=== PATIENT | female | born 1970 | race Caucasian/White ===

== ENCOUNTER 2017-10-12 14:18 | Emergency (ER) | payer OTHER ==
[~2017-10-12] VITALS: Ht 165.1 cm; Wt 69.5 kg
[~2017-10-12 14:18] MED LIST: CEFTIN250 MG PO; CIPRO 500MG TA500 MG PO; CLARITIN; FLAGYL500 MG PO; LORTAB 7.5/5001 TAB PO; MUCINEX1200 MG PO; NO HOME MEDICATIONS; NORCO 325 MG-51 TAB PO; ZOFRAN 4MG T4 MG/TAB PO; ZYRTEC-D 5 MG-11 TER PO
[2017-10-12 14:20] VITALS: BP 146/78; PULSE 108; TEMP 99.2
== END 2017-10-12 15:27 | disposition home or self-care (01) ==
LOC: COL.ER 14:18
DX: S93.402A Sprain of unspecified ligament of left ankle, initial encounter (principal); S83.92XA Sprain of unspecified site of left knee, initial encounter; F17.210 Nicotine dependence, cigarettes, uncomplicated; W01.0XXA Fall on same level from slipping, tripping and stumbling without subsequent striking against object, initial encounter; Y92.89 Other specified places as the place of occurrence of the external cause
CPT/HCPCS: L1846

== ENCOUNTER → 2017-12-21 | Outpatient (CLI) | payer BC | LOC: MC.RAD 07:30 | DX: Z12.31 Encounter for screening mammogram for malignant neoplasm of breast (principal) ==

== ENCOUNTER → 2017-12-23 | Outpatient (CLI) | payer OTHER | LOC: COL.RAD 07:47 | DX: M25.562 Pain in left knee (principal) | CPT/HCPCS: J3301; Q9967 ==

== ENCOUNTER 2019-05-07 00:35 | Emergency (ER) | payer BC ==
[~2019-05-07] VITALS: Ht 165.1 cm; Wt 72.7 kg
[2019-05-07 00:44] VITALS: TEMP 97.9
[2019-05-07 01:23] LABS: BASO # 0.1 (0.0-0.2); BASO % 0.7 % (0.0-2.0); EOS # 0.3 (0.0-0.7); EOS % 2.3 % (0-4.0); GRAN # 6.3 (1.4-6.5); GRAN % 55.2 % (42.2-75.2); HEMATOCRIT 41.5 % (37.0-47.0); HEMOGLOBIN 13.9 g/dl (12.5-16.0); LYMPH % 34.5 % (20.0-51.0); MEAN CELL VOLUME 91 fl (80.0-100.0); MEAN CORPUSCULAR HEMOGLOBIN 31 pg (27.0-31.0); MEAN CORPUSCULAR HGB CONC 34 g/dl (33.0-37.0); MEAN PLATELET VOLUME 10.4 fl (7.4-10.4); MONO # 0.8 (0.1-0.6); PLATELET COUNT 269 K/mm3 (130-400); RED BLOOD COUNT 4.54 M/mm3 (4.10-5.30); REDCELL DISTRIBUTION WIDTH-CV 12.3 % (11.5-14.5)
[2019-05-07 01:30] LABS: ALANINE AMINOTRANSFERASE 9 U/L (9-52); ALBUMIN 4.3 gm/dL (3.5-5.0); ALKALINE PHOSPHATASE 82 U/L (50-136); ANION GAP 10 mmol/L (7-16); AST,SGOT 21 U/L (15-37); BILIRUBIN,TOTAL 0.3 mg/dL (0.0-1.0); BLOOD UREA NITROGEN 22 mg/dL (7-17); CALCIUM 9.5 mg/dL (8.4-10.2); CARBON DIOXIDE 22 mmol/L (22-30); CHLORIDE 107 mmol/L (98-107); CREATININE, serum 0.81 (0.52-1.25); GLUCOSE 112 mg/dL (74-106); POTASSIUM 4.1 mmol/L (3.4-5.0); SODIUM 139 mmol/L (137-145); TOTAL PROTEIN 7.2 gm/dL (6.4-8.2)
[2019-05-07 01:40] LABS: TROPONIN-I < 0.012 ng/mL (0.000-0.035)
[2019-05-07] MEDS ORDERED: ATARAX 10MG10 MG/TAB PO (04:12)
[2019-05-07 04:44] VITALS: BP 123/79; PULSE 74
== END 2019-05-07 04:44 | disposition home or self-care (01) ==
LOC: COL.ER 00:35
PROVIDERS: Emergency Medicine
DX: F41.9 Anxiety disorder, unspecified (principal); R07.89 Other chest pain; R51 Headache; F17.210 Nicotine dependence, cigarettes, uncomplicated; Z90.710 Acquired absence of both cervix and uterus

== ENCOUNTER → 2023-10-05 | Outpatient (CLI) | payer BC ==
[~2023-10-05] MED LIST changes: +ATARAX 10MG10 MG/TAB PO; +FLEXERIL 1010 MG/TAB PO; +MUCINEX 60600 MG/TA1 PO; +PROAIR HFA0.09 MG/AC IH; +XANAX 0.5MG0.5 MG PO
== END ==
LOC: MC.RAD 08:16
DX: Z12.31 Encounter for screening mammogram for malignant neoplasm of breast (principal); N63.21 Unspecified lump in the left breast, upper outer quadrant

== ENCOUNTER → 2023-10-10 | Outpatient (CLI) | payer BC | LOC: MC.RAD 08:00 | DX: Z01.419 Encounter for gynecological examination (general) (routine) without abnormal findings (principal) ==